=== PATIENT | male | born 1960 | race Two or more races ===

== ENCOUNTER 2016-11-24 22:03 | Emergency (ER) | payer OTHER ==
[2016-11-24 22:14] VITALS: BP 132/88; PULSE 100; RESP 20; TEMP 97.9; O2SAT 97
--- NOTE | 2016-11-24 22:18 | EDPHY ---
H & P Time Seen by Provider: 11/24/16 22:12 HPI/ROS: This patient is homeless and intoxicated. He was brought in by fire department after being found low during at the [employer] gas station trying days status rain. He reports that at some point he fell in recent history and he complains of chronic left shoulder and left knee pain. He reports that the left knee pain this to the posterior aspect of the knee and is unchanged from its chronic nature. Firemen noted no evidence of acute trauma. They report that he was finishing off of vodka bottle upon arrival. The patient reports that he typically drinks a pt of vodka a day. He has no other acute complaints. ROS: No fevers or chills. New line HEENT: He denies any headache or head trauma Pulmonary: No cough shortness of breath Cardiovascular: No chest pain or heart palpitations GI: No belly pain, vomiting or diarrhea Integumentary: No lacerations abrasions Complete review of symptoms otherwise negative Smoking Status: Current every day smoker Physical Exam: General Appearance: Alert, no distress. Eyes: Pupils 3 mm equal and round no pallor or injection. ENT, -atraumatic Mouth: Mucous membranes moist. Respiratory: There are no retractions, lungs are clear to auscultation. Cardiovascular: Regular rate and rhythm. No murmur gallop or rub. No peripheral edema. Gastrointestinal: Abdomen is soft and nontender, no masses, bowel sounds normal. Neurological: Patient is alert orient x3 with no focal sensory or motor deficits. Skin: Warm and dry, no rashes. Musculoskeletal: Neck is supple nontender. Extremities atraumatic normal. Left Shoulder: Appreciate no physical exam abnormalities in terms of symmetry. There is no ecchymosis no swelling. He retains full range of motion but complains of chronic shoulder pain. He complains of this while 0 ranging through complete range of motion. Left knee: Normal exam except for minimal posterior tenderness without evidence of Ventura cyst, DVT, swelling, erythema or fluctuance. He retains full range of motion. No laxity with varus, valgus stress or Antonia's. Psychiatric: Mood-normal. Patient is clinically intoxicated with alcohol halitosis and slightly slurred speech. DIFFERENTIAL DIAGNOSIS: After history and physical exam differential diagnosis was considered for alcohol intoxication, chronic shoulder and knee pain without evidence of acute injury Constitutional: Initial Vital Signs Temperature (C) 36.6 C 11/24/16 22:10 Heart Rate 100 11/24/16 22:10 Respiratory Rate 20 11/24/16 22:10 Blood Pressure 132/88 H 11/24/16 22:10 O2 Sat (%) 97 11/24/16 22:10 O2 Delivery Mode Room Air Allergies/Adverse Reactions: No Known Allergies Allergy (Verified 11/24/16 22:09) Home Medications: Medication Instructions Recorded NK [No Known Home Meds] 04/26/16 MDM/Departure - MDM Diagnostics: Patient's breathalyzer is 0.318 Medications Given: Discontinued Medications Acetaminophen (Tylenol) 1,000 mg PO EDNOW ONE Stop: 11/24/16 22:27 Last Admin: 11/24/16 22:30 Dose: 1,000 mg Chlordiazepoxide (Librium 25 Mg Prepack#6) 1 btl TAKEHOME EDNOW ONE Stop: 11/24/16 22:34 Last Admin: 11/24/16 22:36 Dose: 1 btl ED Course/Re-evaluation: Discussion: This patient has alcohol intoxication without any evidence of acute medical condition or injuries. I think that his arrival is prompted in part to escape the weather. Despite the patient's elevated up: Breathalyzer he is able to ambulate without assist. [facility] with Librium outpatient pack. He is accepted to the [facility]. Provided outpatient physician on-call for follow-up I discussed this case with Dr. Tomlin, the [facility] night physician 11:00 p.m. with his ride pending to the [facility]. Dr. Tomlin will not be involved with the case unless a new problem arises prior to the patient's - Depart Disposition: Home, Routine, Self-Care Clinical Impression: Chronic pain of left knee, Chronic left shoulder pain Alcohol intoxication Qualifiers: Complication of substance-induced condition: uncomplicated Qualified Code(s): F10.120 - Alcohol abuse with intoxication, uncomplicated Condition: Good Instructions: Chlordiazepoxide (By mouth), Alcohol Intoxication (ED), Abuse of Alcohol (ED) Additional Instructions: Diagnosis: Alcohol intoxication with 2. Chronic left shoulder pain 3. Chronic left knee pain Plan: To the [facility] recovery [facility]. Tylenol if needed for chronic shoulder knee pain. Follow up with the physician listed below to establish primary care physician Referrals: NONE *PRIMARY CARE P,. [Primary Care Provider] - As per Instructions Lola Rajan MD [Medical Doctor] - As per Instructions
[2016-11-24] MEDS ORDERED: ACETAMINOPHEN 500 MG TAB PO ONE (22:26)
[2016-11-24] MEDS ORDERED: CHLORDIAZEPOXIDE 25MG PREPK#6 BTL TAKEHOME ONE (22:33)
== END 2016-11-24 23:17 | disposition home or self-care (01) ==
LOC: EDUNIT# → CED 22:03
DX: M25.562 Pain in left knee (principal); M25.512 Pain in left shoulder; G89.29 Other chronic pain; F10.120 Alcohol abuse with intoxication, uncomplicated; F17.200 Nicotine dependence, unspecified, uncomplicated

== ENCOUNTER 2017-11-21 10:03 | Emergency (ER) | payer OTHER ==
[2017-11-21 10:22] VITALS: BP 151/100
--- NOTE | 2017-11-21 10:40 | EDPHY ---
H & P Stated Complaint: intermittent bilat popliteal pain Time Seen by Provider: 11/21/17 10:31 HPI/ROS: CHIEF COMPLAINT: Bilateral leg pain HISTORY OF PRESENT ILLNESS: The patient is a 57-year-old man who complains of pain bilateral to his hamstring tendons. He states that he is currently pain- free but every morning when he wakes up has significant soreness. It improves throughout the day as he moves. Is also completely resolved by ibuprofen but he does not want to have to take this every day. He states that he rides his bike several miles each day and that he loves exercise. He denies any swelling or joint pain. He denies injury. No pain or injury to his ankles or hips or other joints. He states that he has had this pain off and on for about a year and that 8 months ago when he was in [facility] he asked the doctor there who suggested he see a neurologist. REVIEW OF SYSTEMS: Constitutional: denies: chills, fever, recent illness, recent injury EENTM: denies: blurred vision, double vision, nose congestion Respiratory: denies: cough, shortness of breath Cardiac: denies: chest pain, irregular heart rate, lightheadedness, palpitations Gastrointestinal/Abdominal: denies: abdominal pain, diarrhea, nausea, vomiting, blood streaked stools Genitourinary: denies: dysuria, frequency, hematuria, pain Musculoskeletal: See HPI denies: joint pain, muscle pain Skin: denies: lesions, rash, jaundice, bruising Neurological: denies: headache, numbness, paresthesia, tingling, dizziness, weakness Hematologic/Lymphatic: denies: blood clots, easy bleeding, easy bruising Immunologic/allergic: denies: HIV/AIDS, transplant EXAM: GENERAL: Well-appearing, well-nourished and in no acute distress. HEAD: Atraumatic, normocephalic. EYES: Pupils equal round and reactive to light, extraocular movements intact, sclera anicteric, conjunctiva are normal. ENT: TMs normal, nares patent, oropharynx clear without exudates. Moist mucous membranes. NECK: Normal range of motion, supple without lymphadenopathy or JVD. LUNGS: Breath sounds clear to auscultation bilaterally and equal. No wheezes rales or rhonchi. HEART: Regular rate and rhythm without murmurs, rubs or gallops. ABDOMEN: Soft, nontender, normoactive bowel sounds. No guarding, no rebound. No masses appreciated. BACK: No CVA tenderness, no spinal tenderness, step-offs or deformities EXTREMITIES: Patient has pain to hamstring tendons bilaterally. Currently no abnormalities. No laxity on knee exam. No tenderness to palpation. No swelling. No discoloration or deformity. Normal pulses and sensation distally. NEUROLOGICAL: Cranial nerves II through XII grossly intact. Normal speech, normal gait. 5/5 strength, normal movement in all extremities, normal sensation PSYCH: Normal mood, normal affect. SKIN: Warm, dry, normal turgor, no visible rashes or lesions. Source: Patient Exam Limitations: No limitations - Medical/Surgical History Hx Asthma: No Hx Chronic Respiratory Disease: No Hx Diabetes: No Hx Cardiac Disease: No Hx Renal Disease: No Hx Cirrhosis: No Hx Alcoholism: No Hx HIV/AIDS: No Hx Splenectomy or Spleen Trauma: No Other PMH: PMH: ETOH. - Family History Significant Family History: No pertinent family hx - Social History Smoking Status: Current every day smoker Alcohol Use: Sober Constitutional: Initial Vital Signs Temperature (C) 36.6 C 11/21/17 10:17 Heart Rate 73 11/21/17 10:17 Respiratory Rate 16 11/21/17 10:17 Blood Pressure 151/100 H 11/21/17 10:17 O2 Sat (%) 96 11/21/17 10:17 O2 Delivery Mode Room Air Allergies/Adverse Reactions: No Known Allergies Allergy (Verified 11/21/17 10:17) Home Medications: Medication Instructions Recorded NK [No Known Home Meds] 04/26/16 Medical Decision Making ED Course/Re-evaluation: The patient has an overuse tendinitis. I encouraged him to try other forms of exercises in addition to cycling or tall alternate. He would benefit from strengthening other muscles as well. He states that this makes lot of sense and he is eager to try. He declines any testing or workup at this time. Differential Diagnosis: Partial list of the Differential diagnosis considered include but were not limited to; tendinitis, arthritis and although unlikely based on the history and physical exam, I also considered gout, infection, DVT, tendon rupture, fracture. I discussed these differential diagnoses and the plan with the patient as well as the usual and expected course. The patient understands that the diagnosis is provisional and that in medicine we are not always correct and that further workup is often warranted. Usual and customary warnings were given. All of the patient's questions were answered. The patient was instructed to return to the emergency department should the symptoms at all worsen or return, otherwise to followup with the physician as we discussed. Departure - Departure Disposition: Home, Routine, Self-Care Clinical Impression: Hamstring tendonitis Condition: Fair Instructions: Hamstring Exercises (ED) Referrals: [facility],. [Clinic] - As per Instructions
== END 2017-11-21 10:53 | disposition home or self-care (01) ==
LOC: CED 10:03 → EDSTATUS 10:03 → CED 10:53
DX: M77.8 Other enthesopathies, not elsewhere classified (principal); F17.200 Nicotine dependence, unspecified, uncomplicated

== ENCOUNTER 2017-11-25 11:00 | Emergency (ER) | payer MEDICAID, OTHER ==
--- NOTE | 2017-11-25 11:19 | EDPHY ---
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 Patient wash the wound out with hydrogen peroxide. The bleeding has been controlled. His last tetanus is unknown. He was referred in by his employer. REVIEW OF SYSTEMS: As in HPI, and all other systems reviewed and are negative Smoking Status: Current every day smoker Physical Exam: General Appearance: Alert and no distress. Head: Normocephalic, atraumatic Eyes: Pupils equal and round no injection. Extraocular movements are intact. Musculoskeletal: Neck is supple and nontender. Extremities: Right index finger positive v-shaped flap laceration on distal volar portion of right index finger, nail is intact, distal cap refills less than 2 sec, distal sensation is intact, full range of motion of all joints in the affected finger. Skin: No rashes or lesions except as described above. Constitutional: Initial Vital Signs Temperature (C) 36.9 C 11/25/17 11:18 Heart Rate 79 11/25/17 11:18 Respiratory Rate 16 11/25/17 11:18 Blood Pressure 141/91 H 11/25/17 11:18 O2 Sat (%) 94 11/25/17 11:18 O2 Delivery Mode Room Air Allergies/Adverse Reactions: No Known Allergies Allergy (Verified 11/25/17 11:18) Home Medications: Medication Instructions Recorded NK [No Known Home Meds] 04/26/16 MDM/Departure - MDM Medications Given: Discontinued Medications Diphtheria/Tetanus/Acell Pertussis (Boostrix) 0.5 ml IM .ONCE ONE Stop: 11/25/17 11:22 Last Admin: 11/25/17 11:25 Dose: 0.5 ml ED Course/Re-evaluation: Patient presents with 18 hr old flap laceration to right index finger. Given the age of the wound, we will not do primary closure. The wound is superficial enough that delayed primary closure is also probably not necessary. We will have him keep the wound covered and clean. We discussed return precautions the symptoms of infection. Patient was given tetanus booster. - Depart Disposition: Home, Routine, Self-Care Clinical Impression: Laceration of finger Qualifiers: Encounter type: initial encounter Finger: index finger Damage to nail status: without damage Foreign body presence: without foreign body Laterality: right Qualified Code(s): S61.210A - Laceration without foreign body of right index finger without damage to nail, initial encounter Clinical Impression: (Ruled Out): Nailbed laceration, finger Condition: Good Instructions: Laceration Without Closure (ED) Additional Instructions: You were seen by Dr. Rylee Sevilla today. Keep the wound clean and covered with a Band-Aid and Neosporin ointment. Wash her hands with soap and water as usual. Wear gloves if you are working in a dirty environment or in water until the wound is completely healed.. Watch for signs and symptoms of infection which include pus coming from the wound, fever, increased pain, spreading swelling or redness. Return for any worsening or new concerns. Referrals: NONE *PRIMARY CARE P,. [Primary Care Provider] - As per Instructions
[2017-11-25 11:21] VITALS: BP 141/91
[2017-11-25] MEDS ORDERED: TDAP ADULT 0.5 ML INJ (BOOSTRIX) IM ONE (11:21)
== END 2017-11-25 11:46 | disposition home or self-care (01) ==
LOC: CED 11:00
DX: S61.210A Laceration without foreign body of right index finger without damage to nail, initial encounter (principal); F17.200 Nicotine dependence, unspecified, uncomplicated; Z23 Encounter for immunization; W26.0XXA Contact with knife, initial encounter

== ENCOUNTER 2018-06-09 12:20 | Emergency (ER) | payer MEDICAID ==
--- NOTE | 2018-06-09 13:06 | EDPHY ---
H & P Time Seen by Provider: 06/09/18 12:52 HPI/ROS: HPI History of shingles. Skin pain. 57-year-old male by private vehicle. This patient has a history of shingles. He was seen in the emergency department on February 09 of this year for this. He was prescribed appropriate antivirals. He took this medication through entire course of prescription. He states that since his rash has resolved he has had ongoing intermittent prickly pain and discomfort to the area of his rash which is a left upper thoracic dermatomal distribution. He reports that the pain is sometimes worse when he is wearing a shirt over the area and it rubs on something. He reports sometimes it does not bother him as much. He has not had a fever. He denies any new outbreak of vesicles or rash. He has no other complaints. ROS: Constitutional: No fever, no chills. No weakness. Respiratory: No cough. No shortness of breath. Cardiac: No chest pain, no palpitations. Gastrointestinal: No abdominal pain, no vomiting, no diarrhea. Musculoskeletal: No back pain. No neck pain. No myalgias or arthralgias. Skin: As above. Neurological: No headache. No focal weakness or altered sensation. Past medical history: Alcohol abuse, rib fractures, hypertension, as above. He currently does not have a primary care physician. Social history: Nonsmoker. He is here by himself. History of alcohol abuse. Physical Exam: General Appearance: Alert, no distress. This patient is responding to questions appropriately and in full sentences. This patient appears well- hydrated and well-nourished. Eyes: Pupils equal and round no pallor or injection. No lid edema, erythema or injection. Neurological: Motor sensory function is grossly intact. Cranial nerves are normal. Gait is normal. Skin: Warm and dry, no acute rashes. Upper thoracic dermatomal distribution scarring from previous their a sellar zoster outbreak. No new vesicles/acute lesions. No erythema or warmth. No associated edema. Musculoskeletal: Neck is supple and nontender. Extremities are symmetrical. All joints range without pain or impingement. Psychiatric: No agitation. No depression. Database: EKG: Imaging: Procedures: Emergency department course: Triage vital signs reviewed and are unremarkable. Patient's presentation is consistent with post herpetic neuralgia. I will treat him with a combination of capsaicin ointment and gabapentin. I have also discussed primary care physician referral for follow-up. He feels comfortable with this plan and comfortable being discharged. Follow-up and return to emergency department precautions have been reviewed with him. All of his questions were answered. He was discharged in good condition. Differential Diagnosis: The differential diagnosis on this patient includes but is not limited to post herpetic neuralgia. Acute varicella zoster outbreak, pulmonary embolism, acute coronary syndrome, cellulitis unlikely. This represents a partial list of diagnoses considered. These considerations are based on history, physical exam , past history, reassessment and diagnostic testing. Smoking Status: Current every day smoker Constitutional: Initial Vital Signs Temperature (C) 36.8 C 06/09/18 12:53 Heart Rate 99 06/09/18 12:53 Respiratory Rate 20 06/09/18 12:53 Blood Pressure 134/105 H 06/09/18 12:53 O2 Sat (%) 95 06/09/18 12:53 O2 Delivery Mode Room Air Allergies/Adverse Reactions: No Known Allergies Allergy (Verified 06/09/18 12:59) Home Medications: Medication Instructions Recorded Acetaminophen 06/09/18 Capsaicin 42.5 gm TP TID #1 cream..g. 06/09/18 Gabapentin [Neurontin 300 MG (*)] 300 mg PO HS #20 cap 06/09/18 Departure - Departure Disposition: Home, Routine, Self-Care Clinical Impression: Post herpetic neuralgia Condition: Good Instructions: Shingles (ED) Additional Instructions: Read and follow provided instructions. Call the offices of [facility] to arrange for follow-up next week with a primary care physician and establishment of a primary care physician relationship. Take medication as prescribed. Apply ointment to area of rash in scarring. Return to the emergency department for worsening symptoms, worsening pain, fever or other serious concerns. Referrals: [facility] [Outside] - As per Instructions Prescriptions: Capsaicin 42.5 gm TP TID #1 cream..g. Gabapentin [Neurontin 300 MG (*)] 300 mg PO HS #20 cap
[2018-06-09 13:07] VITALS: BP 132/98
== END 2018-06-09 13:23 | disposition home or self-care (01) ==
LOC: CED 12:20
DX: B02.29 Other postherpetic nervous system involvement (principal)